=== PATIENT | male | born 1955 | race Caucasian/White ===

== ENCOUNTER → 2021-12-29 08:40 | Outpatient (CLI) | payer MEDICARE, OTHER, SELFPAY ==
--- NOTE | 2021-12-29 | DI.US.S_ITS ---
PROCEDURE: US ABDOMEN LIMITED INDICATIONS: ELEVATED LFT'S TECHNIQUE: Real-time focused scanning was performed of the abdomen, with image documentation. COMPARISON: None. FINDINGS: The liver is normal in size and demonstrates no suspicious focal lesions. Within the left lobe of the liver, there is a likely 3 mm cyst incidentally noted. No findings of gallstones or sludge are seen. The gallbladder wall is not thickened, measuring 3 mm or less. No specific pericholecystic fluid is seen. The sonographic Lucio sign is negative. There is no biliary dilatation, the common bile duct measures 5 mm. Potential echogenic material can be seen within the biliary tree. The pancreas is not well seen, secondary to overlying bowel gas. Apparent cyst can be seen of the right kidney that measure up to 2.8 cm and up to 3.1 cm. IMPRESSION: Normal appearing liver, without suspicious lesions. Normal appearing gallbladder. No biliary dilatation is seen, although there is potential echogenic material within the common bile duct. Dictated by: Daniel Calero M.D. on 12/29/2021 at 8:44 Approved by: Daniel Calero M.D. on 12/29/2021 at 8:46
== END ==
PROVIDERS: PCP Physician Assistant; Referring Provider Physician Assistant; Visit Provider Physician Assistant
DX: R79.89 Other specified abnormal findings of blood chemistry (principal); N28.1 Cyst of kidney, acquired
CPT/HCPCS: 76705